=== PATIENT | female | born 1945 | race Caucasian/White ===

== ENCOUNTER 2024-02-21 17:19 | Emergency (ER) | payer MEDICARE, OTHER, SELFPAY ==
--- NOTE | 2024-02-21 17:40 | ED.GENMED ---
ED Provider Triage
<SHARATH Ortega - Last Filed: 02/21/24 17:47>
-
Patient seen by provider in Triage?: Seen in Triage
Attestation: A medical screening examination has been initiated by a qualified medical provider. Based on the assessment performed at this time, it has been determined that an emergent medical condition may exist and the patient has been informed
that further medical evaluation and possible additional diagnostic testing may be needed.
HPI:
78-year-old female with history of pancreatic cancer presents to the ED for constipation. Pt feels impacted only produced small amt of stool today. Pt denies any nausea/vomiting. Pt has used fleets suppositories, Miralax . No relief. Pt is
uncertain of last good bowel movement
GENERAL: Alert , in no apparent distress
EYE: No visual abnormalities.
NECK: Trachea midline
ENT: No visible abnormalities.
LUNGS: No acute respiratory distress
NEUROLOGICAL: Alert and oriented
SKIN: Skin intact. No visible changes.
MUSCULOSKELETAL: Moving extremities normally
PSYCH: Normal and appropriate interaction.
This is a medical evaluation conducted in person to initiate diagnostic evaluation and provide initial therapeutics. Please see further documentation by the treating clinician.
History of Present Illness
<SHARATH Ortega - Last Filed: 02/21/24 17:47>
General
Chief Complaint: Bowel Problem
Time Seen by Provider: 02/21/24 22:38
<Pari Villalpando DO - Last Filed: 02/22/24 01:02>
History of Present Illness
History of Present Illness:
78-year-old female with history of pancreatic cancer currently in a clinical trial presenting for constipation. Reports constipation ongoing for over a week, last bowel movement was on Sunday. Had outpatient imaging on Sunday, CT imaging of the
abdomen which showed constipation without obstruction. She tried a Fleet enema at home as well as herbal tea. She notes some general abdominal discomfort and minimal flatus. Denies fever, chest pain, difficulty breathing.
Phy Exam
<Pari Villalpando DO - Last Filed: 02/22/24 01:02>
Physical Exam
Physical Exam:
General: Well-appearing, no clinical signs of dehydration, nontoxic and in no acute distress
HEENT: protecting airway
Neck: appears supple
CV: Normal heart rate, regular rhythm
Resp: No accessory muscle use, no increased work of breathing, lungs clear to auscultation bilaterally
Abd: Soft and non-distended, no focal tenderness to palpation, no erythema, pulses and sensation intact
Neuro: alert, no focal neurologic deficit
: deferred
Rectal: deferred
Psych: Normal affect
Skin: Intact
Course
<GUILHERME OrtegaNP - Last Filed: 02/21/24 17:47>
Orders/Labs/Results
Orders:
Orders
02/21/24 17:44
Obstruct Series W/PA Chest [CR Obstruct Series W/pa Chest] Urgent
Comment:
Reason For Exam: constipation
02/21/24 22:57
Enema- Treatment ONCE
Type: Milk of Molasses
02/21/24 23:24
Complete Blood Count/With Diff Urgent
Comprehensive Metabolic Panel Urgent
Abnormal Lab Results
02/21/24
23:24
RBC 3.88 L 10^6/uL
(4.20-5.40)
Hct 36.5 L %
(37.0-47.0)
MCH 31.7 H pg
(27.0-31.0)
RDW 15.1 H %
(11.5-14.5)
Absolute Lymphs (auto) 0.6 L 10^3/uL
(1.2-3.4)
Absolute Monos (auto) 1.0 H 10^3/uL
(0.1-0.6)
Neutrophils % 78.4 H %
(42.2-75.2)
Lymphocytes % 7.7 L %
(20.5-51.1)
Monocytes % 13.0 H %
(1.7-9.3)
Sodium 126 L mmol/L
(135-145)
Chloride 89 L mmol/L
(98-107)
BUN 27 H mg/dl
(7-17)
Creatinine 0.5 L mg/dL
(0.6-1.0)
Glucose 113 H mg/dl
(70-99)
Total Protein 6.2 L g/dl
(6.3-8.2)
02/21/24 23:24
02/21/24 23:24
Vital Signs
Initial and Last Documented VS:
Initial Vital Signs
Temp Pulse Resp BP Pulse Ox
96.3 F L 94 18 112/72 97
02/21/24 17:41 02/21/24 17:41 02/21/24 17:41 02/21/24 17:41 02/21/24 17:41
Last Documented Vital Signs
Temp Pulse Resp BP Pulse Ox
96.3 F L 94 18 133/70 97
02/21/24 17:41 02/21/24 17:41 02/21/24 17:41 02/22/24 00:02 02/21/24 23:37
<Pari Villalpando, DO - Last Filed: 02/22/24 01:02>
Orders/Labs/Results
Orders:
Orders
02/21/24 17:44
Obstruct Series W/PA Chest [CR Obstruct Series W/pa Chest] Urgent
Comment:
Reason For Exam: constipation
02/21/24 22:57
Enema- Treatment ONCE
Type: Milk of Molasses
02/21/24 23:24
Complete Blood Count/With Diff Urgent
Comprehensive Metabolic Panel Urgent
Abnormal Lab Results
02/21/24
23:24
RBC 3.88 L 10^6/uL
(4.20-5.40)
Hct 36.5 L %
(37.0-47.0)
MCH 31.7 H pg
(27.0-31.0)
RDW 15.1 H %
(11.5-14.5)
Absolute Lymphs (auto) 0.6 L 10^3/uL
(1.2-3.4)
Absolute Monos (auto) 1.0 H 10^3/uL
(0.1-0.6)
Neutrophils % 78.4 H %
(42.2-75.2)
Lymphocytes % 7.7 L %
(20.5-51.1)
Monocytes % 13.0 H %
(1.7-9.3)
Sodium 126 L mmol/L
(135-145)
Chloride 89 L mmol/L
(98-107)
BUN 27 H mg/dl
(7-17)
Creatinine 0.5 L mg/dL
(0.6-1.0)
Glucose 113 H mg/dl
(70-99)
Total Protein 6.2 L g/dl
(6.3-8.2)
02/21/24 23:24
02/21/24 23:24
Vital Signs
Initial and Last Documented VS:
Initial Vital Signs
Temp Pulse Resp BP Pulse Ox
96.3 F L 94 18 112/72 97
02/21/24 17:41 02/21/24 17:41 02/21/24 17:41 02/21/24 17:41 02/21/24 17:41
Last Documented Vital Signs
Temp Pulse Resp BP Pulse Ox
96.3 F L 94 18 133/70 97
02/21/24 17:41 02/21/24 17:41 02/21/24 17:41 02/22/24 00:02 02/21/24 23:37
<Pari Villalpando DO - Last Filed: 02/22/24 01:02>
MDM/Problems Addressed
MDM/Problems Addressed:
78-year-old female with history of metastatic pancreatic cancer presenting for constipation. Vital signs on arrival are normal.
On exam, patient is resting comfortably, no acute distress comfort. Patient arrives with read of CT imaging performed on Sunday, no signs of obstruction, shows constipation. No significant distention on abdominal exam without focal tenderness.
Low suspicion for developed obstruction at this time. Patient seen in triage, ordered for x-ray imaging. Will try milk of molasses enema and if unsuccessful will proceed with manual disimpaction
01:00 -Labs show hyponatremia, otherwise unremarkable. X-ray without nonobstructive bowel gas pattern. Unsuccessful enema. Patient subsequently manually disimpacted, successful. Will continue to monitor likely plan for discharge home and
continued supportive therapy
<Pari Villalpando DO - Last Filed: 02/22/24 01:02>
*Critical Care Note
Total Time (30-74mins, 75-104mins- exclusive of procedures): Not Applicable
ED Attending Note
<SHARATH Ortega - Last Filed: 02/21/24 17:47>
-
Portions of this chart may have been created with voice recognition software.� Occasional wrong word or��sound alike� substitutions may have occurred due to the inherent limitations of voice recognition software.
Discharge Plan
Departure
Prescriptions:
No Action
valacyclovir 1,000 MG tablet
1,000 mg PO TID 7 Days Qty: 21 0RF
gabapentin 300 MG capsule
300 mg PO TID Qty: 30 0RF
Referrals:
Africa Draper MD [Family Provider] -
Interventions
Interventions:
*Risk Screen - Suicide Last Done: 02/21/24 17:41
*General Assessment Last Done: 02/21/24 17:41
*Neglect/Abuse Screening Last Done: 02/21/24 17:41
*ED COVID-19 Vaccine History Last Done: 02/21/24 22:38
GU-Nzuwsx-Vfnddkjdlb Assessment Last Done: 02/21/24 22:38
Discharge Date and Time
Print Language: SPANISH
[2024-02-21 17:41] VITALS: BP 112/72
[2024-02-21 22:44] VITALS: BMI 13.9
[2024-02-21 23:25] VITALS: BP 118/65
[2024-02-21 23:35] LABS: % Basophils 0.3 % (0-2); % Eosinophils 0.3 % (0-6); % Immature Granulocytes 0.3 % (0-0.5); % Lymphocytes 7.7 % (20.5-51.1); % Neutrophils 78.4 % (42.2-75.2); Absolute Lymphocytes 0.6 10^3/uL (1.2-3.4); Absolute Neutrophils 6.2 10^3/uL (1.4-6.5); Hematocrit 36.5 % (37.0-47.0); Hemoglobin 12.3 g/dL (12.0-16.0); Mean Corp Hgb Conc. 33.7 g/dL (33.0-37.0); Mean Corpuscular Hgb 31.7 pg (27.0-31.0); Mean Corpuscular Volume 94.1 fL (81.0-99.0); Mean Platelet Volume 8.9 fL (7.4-10.4); Nucleated Red Blood Cells % 0 %; Platelet Count 248 10^3/uL (130-400); Red Blood Cell Count 3.88 10^6/uL (4.20-5.40); Red Cell Dist. Width 15.1 % (11.5-14.5); White Blood Cell Count 7.9 10^3/uL (4.8-10.8)
[2024-02-21 23:45] LABS: ALT (SGPT) 15 U/L (0-35); AST (SGOT) 18 U/L (14-36); Albumin 3.8 g/dl (3.5-5.0); Alkaline Phosphatase 93 U/L (38-126); Blood Urea Nitrogen 27 mg/dl (7-17); Calcium 8.8 mg/dl (8.4-10.2); Carbon Dioxide 27 mmol/L (22-30); Chloride 89 mmol/L (98-107); Estimated Creatinine Clearance 40 ml/min; Glucose 113 mg/dl (70-99); Potassium 4.8 mmol/L (3.5-5.1); Sodium 126 mmol/L (135-145); Total Bilirubin 0.7 mg/dl (0.2-1.3); Total Protein 6.2 g/dl (6.3-8.2); eGFR > 60.00
[2024-02-22 00:02] VITALS: BP 133/70
[2024-02-22 01:19] VITALS: BP 133/66
== END 2024-02-22 02:23 | disposition home or self-care (01) ==
LOC: EMR 17:19
PROVIDERS: Nurse Practitioner; EMERGENCY PHYSICIAN Student in an Organized Health Care Education/Training Program; FAMILY PHYSICIAN Internal Medicine
DX: K59.00 Constipation, unspecified (principal); E87.1 Hypo-osmolality and hyponatremia
CPT/HCPCS: 99284; 74022; 80053; 85025